=== PATIENT | male | born 2000 | race Caucasian/White ===

== ENCOUNTER 2019-11-29 13:24 | Outpatient (CLI) | payer BC ==
--- NOTE | 2019-11-29 14:55 | MRI ---
MRI BRAIN WITH AND WITHOUT IV CONTRAST: HISTORY: Nonintractable episodic headache FINDINGS: No restricted diffusion is seen. No evidence of infarct, hemorrhage, mass, midline shift or abnormal extra-axial fluid collections is noted. No abnormal postcontrast enhancement is seen. The ventricular size is appropriate and the basilar cisterns are patent. No signal abnormalities are seen on the highly sensitive FLAIR images. No blood products are noted on the gradient echo sequences. No tonsillar herniation is seen. The visualized paranasal sinuses and mastoid air cells are well aerated. IMPRESSION: Normal exam.
== END 2019-11-29 13:25 | disposition home or self-care (01) ==
LOC: SCSMRI 13:24
PROVIDERS: ATTEND Nurse Practitioner Acute Care
DX: R51 Headache (principal)
CPT/HCPCS: 70553